=== PATIENT | male | born 1965 | race Caucasian/White ===

== ENCOUNTER → 2021-09-08 | Outpatient (CLI) | payer BC | END | disposition home or self-care (01) | LOC: LAB 14:23 → LAB SHORT 14:23 | DX: D49.89 Neoplasm of unspecified behavior of other specified sites (principal); R59.0 Localized enlarged lymph nodes; F17.201 Nicotine dependence, unspecified, in remission | CPT/HCPCS: 88173 ==

== ENCOUNTER → 2021-09-19 | Outpatient (CLI) | payer BC ==
[2021-09-19 17:47] LABS: Performing Lab SYMBIODX; Test Name FLOW CYTOMETRY
[2021-09-20 13:28] LABS: Performing Lab SYMBIODX; Test Name TISSUE BIOPSY
== END | disposition home or self-care (01) ==
LOC: LAB SHORT 10:31 → LAB 10:31
PROVIDERS: Pathology Anatomic Pathology & Clinical Pathology
DX: D49.89 Neoplasm of unspecified behavior of other specified sites (principal)
CPT/HCPCS: 88184; 88185; 88305

== ENCOUNTER 2021-09-28 12:05 | Day surgery (SDC) | payer BC ==
[2021-09-28] MEDS ORDERED: LISI20 PO (12:24)
[2021-09-28] MEDS ORDERED: SERT100 PO (12:24)
--- NOTE | 2021-09-28 15:10 | NUR ---
09/28/21 Amarilis Hancock 0.25CC EPI ADDED INTO 50CC NACL FOR EPI SOLN = 1:200,000. 1.5CC INJECTED.
--- NOTE | 2021-09-28 15:31 | NUR ---
09/28/21 1531 Casi Serna 1520: PT UP TO RESTROOM WITH SBA. PT STS "HOW LONG DO I HAVE TO STAY? I THINK I'M GOOD TO GO." AT BEDSIDE, LAUGHING AND AGREEING THAT HE DOES NOT LIKE STAYING IN HOSPITAL SETTING.
== END 2021-09-28 15:55 | disposition home or self-care (01) ==
LOC: ORSCSDS 12:05
PROVIDERS: Otolaryngology
PROC: 07B20ZX Excision of Left Neck Lymphatic, Open Approach, Diagnostic (ICD-10-PCS; principal; 2021-09-28 13:30)
DX: C85.11 Unspecified B-cell lymphoma, lymph nodes of head, face, and neck (principal); Z87.891 Personal history of nicotine dependence; I10 Essential (primary) hypertension; R73.03 Prediabetes; Z79.899 Other long term (current) drug therapy
CPT/HCPCS: 88305; 88342; J0171; J1100; J2250; J2405; J2704; J2710; J3010; J7120

== ENCOUNTER 2021-10-17 10:05 | Day surgery (SDC) | payer BC ==
[~2021-10-17] VITALS: Ht 182.9 cm; Wt 77.7 kg
[~2021-10-17 10:05] MED LIST: LISI20 PO; Prednisone10 MG PO; SERT100 PO
--- NOTE | 2021-10-17 11:30 | NUR ---
PT AMBULATES TO [facility] c STEADY GAIT. REPORTS NPO SINCE MIDNIGHT. History, Chart, Medications and Allergies reviewed before start of procedure. Lungs clear T/O to Auscultation. Patient reports completing Chlorhexadine shower X2 prior to admission to hospital. Patient States Post-Procedure ride home has been arranged.
--- NOTE | 2021-10-17 14:53 | NUR ---
PT TO STEP, DENIES PAIN OR NAUSEA. STERI STRIP TO R NECK AND DRESSING TO R CHEST CDI. PT GIVEN FOOD AND DRINK. TOLERATES WELL. GIVEN RX AND DC INSTRUCTIONS. PT AND S/O VERBALIZES AN UNDERSTANDING s QUESTIONS. PT STANDS AND DRESSES SELF s DIFFICULTY. IV DC'D, CATH INTACT AND PRESSURE DRESSING APPLIED. OTD IN NAD VIA WC c SAFE RIDE HOME.
== END 2021-10-17 23:06 | disposition home or self-care (01) ==
LOC: ORSCMMR 10:05 → ORD 11:45 → ORSCMMR 23:06
PROVIDERS: Surgery
PROC: 05HM33Z Insertion of Infusion Device into Right Internal Jugular Vein, Percutaneous Approach (ICD-10-PCS; principal; 2021-10-17 11:45)
PROC: B543ZZA Ultrasonography of Right Jugular Veins, Guidance (ICD-10-PCS; principal; 2021-10-17 11:45)
DX: C83.38 Diffuse large B-cell lymphoma, lymph nodes of multiple sites (principal); I10 Essential (primary) hypertension; Z79.899 Other long term (current) drug therapy; Z87.891 Personal history of nicotine dependence
CPT/HCPCS: 77001; C1788; J0690; J1642; J2250; J2704; J3010; J7120

== ENCOUNTER → 2021-12-30 | Outpatient (CLI) | payer BC | LOC: LAB SHORT 14:48 → LAB 14:48 | DX: R30.0 Dysuria (principal) | CPT/HCPCS: 87086 ==